=== PATIENT | male | born 1995 | race Caucasian/White ===

== ENCOUNTER 2020-11-16 10:27 | Emergency (ER) | payer SELFPAY ==
[2020-11-16] MEDS ORDERED: NORCO 5-325 TA1 EACH PO (12:31)
[2020-11-16] MEDS ORDERED: MOBIC15 MG PO (12:31)
== END 2020-11-16 15:25 | disposition home or self-care (01) ==
LOC: FER 10:27
DX: S83.206A Unspecified tear of unspecified meniscus, current injury, right knee, initial encounter (principal); X58.XXXA Exposure to other specified factors, initial encounter; Y92.009 Unspecified place in unspecified non-institutional (private) residence as the place of occurrence of the external cause
CPT/HCPCS: 73560